=== PATIENT | female | born 1960 | race African-American/Black ===

== ENCOUNTER → 2019-02-12 | Outpatient (CLI) | payer OTHER ==
[~2019-02-12] MED LIST: ALBU2.5V8 INH; AMLO5TAB10 PO; ATOR40TA59 PO; CYCL5TAB PO; FURO20TA3 PO; HYDR-2765 PO; LACT1CAP6 PO; METH-39 PO; OMEP40CA5 PO; POTA10TA12 PO; PSYL0.5215 PO
--- NOTE | 2019-02-13 03:25 | PAIN ---
DATE OF SERVICE: 02/12/2019 INITIAL CONSULTATION FOR PAIN CLINIC CHIEF COMPLAINT: Neck and right upper extremity pain as well as low back and right lower extremity pain. HISTORY OF PRESENT ILLNESS: This is a 58-year-old female who presents with history of pain, neck, shoulders, upper arm on the right side into the hand and fingers on both sides with pain in the mid back, upper back, low back, bilateral lower extremities into the right anterior thigh, anterior medial thigh, medial lower leg into the foot with some numbness and tingling. The patient reports it is sharp, stabbing, throbbing, constant which is going on for about 20 years, worse over the past 1-2 years without specific injury or action she is aware of, just increasing gradually over time. The patient reports it wakes her from sleep at least 4 times a night, does not affect her bowel or bladder control, but does affect her ability to walk initially with her right leg, which is her chief complaint and low back and leg. The patient reports she has had physical therapy, water therapy recently in 12/2018 and doing exercise currently on her own as well with only minimal decrease in pain, but it did improve. The patient is taking ____, which does decrease the pain fairly significantly. The patient rates her disability from 0-10, 10 being the worst, is 8 with family home responsibilities and recreation and self-care, 5 with social activity, 5 with life support activities. The patient had not had any recent diagnostic studies but she reports she had an MRI several years ago about 2002 or 2003, she believes. She did have some nerve conduction studies done in 11/2018 showing chronic low back pain from degenerative disk disease, lumbar vertebral radiculitis, chronic neck pain from degenerative disk disease and cervical vertebrae with right cervical radiculitis and cervical spondylosis. PAST MEDICAL HISTORY: Significant for shortness of breath, hypertension, gastroesophageal reflux, dizziness, headaches, depression, arthritis of the knees, and hydrocephalus in the past. PREVIOUS SURGERY: Include total abdominal hysterectomy in 2009, breast reduction, tubal ligation, trigger finger releases and bilateral wrist surgery and bilateral elbow surgery. CURRENT MEDICATIONS: Include ____, Metamucil, probiotics, ProAir inhaler, amlodipine, atorvastatin, cyclobenzaprine, Lasix, potassium, hydrocodone and omeprazole. ALLERGIES: THE PATIENT IS ALLERGIC TO PERCOCET. SOCIAL HISTORY: The patient drinks alcohol very rarely. Does smoke and has been smoking for about 20 years, 1 pack a day or less. Does not use any illegal, illicit or recreational drugs. Single, lives locally in [facility]. Reports that she is currently retired. REVIEW OF SYSTEMS: The patient's review of systems is positive for those items mentioned in history of present illness. All systems reviewed and otherwise negative. It is complete, full and well documented on the patient's chart. PHYSICAL EXAMINATION: VITAL SIGNS: The patient's blood pressure is 140/91, pulse is 79, respirations 20, temperature is 98.4 degrees Fahrenheit, height is 5 feet 3 inches, weight is 198 pounds. GENERAL: The patient is awake, alert, oriented, appropriate, very pleasant demeanor. HEENT: Shows normocephalic, atraumatic. Extraocular movements are intact and symmetrical. Oral cavity; mucous membranes moist and pink. Dentition is intact. NECK: Shows anterior throat supple without palpable lymphadenopathy noted. Swallow reflex is symmetrical. Neck shows full rotation of cervical spine without significant difficulty. Posterior cervical musculature shows symmetrical on inspection with some moderate tenderness in the inferior aspect of the cervical paraspinous muscles as well as the middle distribution, also into the trapezius musculature more on the right than the left with some moderate tenderness, but only diffusely without trigger points, without radiation. Again, full extension and flexion is performed of the cervical spine with full rotational motion both laterally greater than 45 degrees, close to 90 degrees without difficulty. CHEST: Shows normal on inspection. Breath sounds clear to auscultation bilaterally. HEART: Shows S1, S2 clear. No murmurs auscultated. ABDOMEN: Soft, nontender, nondistended. No palpable organomegaly is noted. No rebound or guarding demonstrated. BACK: Shows spine grossly in the midline. Normal appearing thoracic kyphosis. Moderate tenderness in the lumbar paraspinous ____ shows symmetrical on inspection, but with palpation shows some moderate diffuse tenderness throughout the upper ____ paraspinous muscles bilaterally. The patient has good rotational motion, however, both laterally as well as extension and flexion of lumbar spine without significant impairment or difficulty. EXTREMITIES: Lower extremities show deep tendon reflexes 1+ in the patellar and tendo calcaneus tendons. Motor exam is approximately 4 on a scale of 5, but symmetrical dorsiflexion, extension, quadriceps and hamstring flexion. Upper extremities show deep tendon reflexes 2+ in the biceps and triceps tendons. 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 Peripheral pulses are 2+ radial, 1+ posterior tibial bilaterally. No peripheral edema is noted throughout the extremities, upper and lower. Straight leg raising noted to be negative for reproduction of radicular symptoms bilaterally. Gaenslen's and Jeffery's maneuvers are negative bilaterally as well. The patient is able to stand, stand on her toes without significant difficulty or loss of balance, is walking with a normal appearing gait for short distance in the office today, not using any assistive device such as canes or walkers to ambulate. SKIN: Shows warm and dry, good turgor. No edema. No sores, rashes or bruising. IMPRESSION: 1. This is a 58-year-old female with long history of low back pain and right lower extremity pain in a radicular fashion. 2. Cervical pain with cervical radiculopathy, clinically in the right upper extremity. 3. Arthritis. 4. Hypertension. 5. Cigarette smoking. PLAN: Options were discussed with the patient including conservative medical managements, physical therapies and interventional techniques and she is very much adamantly against any interventional techniques at this time. We discussed obtaining an MRI scan of the cervical and lumbar spines or even a CT scan. The patient refuses both of these as she reports she does not want to get near the scanners. We did settle on plain films of the cervical and lumbar spines and we will order this for her today to try and diagnose any degenerative changes that may be present as well as arthritic changes. The patient is agreeable to this. Also, we will try Medrol Dosepak. The patient was given instruction as well as side effects to be aware of with the medication. The patient will follow up after x-rays are obtained. MYNOR HAWKINS MD DR: JOSEP/miguelina JOB#: [id number] / [id number] KIAN Payan MD
== END | disposition home or self-care (01) ==
LOC: PNCL 09:51
PROVIDERS: ATTEND Anesthesiology
DX: M54.2 Cervicalgia (principal); M79.601 Pain in right arm; M79.604 Pain in right leg; I10 Essential (primary) hypertension; K21.9 Gastro-esophageal reflux disease without esophagitis; F32.9 Major depressive disorder, single episode, unspecified; F17.210 Nicotine dependence, cigarettes, uncomplicated; M19.90 Unspecified osteoarthritis, unspecified site; Z90.710 Acquired absence of both cervix and uterus; Z98.51 Tubal ligation status; Z79.899 Other long term (current) drug therapy; Z79.891 Long term (current) use of opiate analgesic; Z79.84 Long term (current) use of oral hypoglycemic drugs; Z88.5 Allergy status to narcotic agent
CPT/HCPCS: G0463